=== PATIENT | female | born 1955 | race Caucasian/White ===

== ENCOUNTER 2025-04-08 17:04 | Emergency (ER) | payer OTHER, MEDICARE ==
[~2025-04-08] VITALS: Ht 147.3 cm; Wt 47.6 kg
[2025-04-08 17:39] VITALS: BP 120/79
[2025-04-08] MEDS ORDERED: PENICILLIN G BENZATHINE 2.4 MMU/4 ML DISP.SYRIN IM ONE (19:27)
[2025-04-08] MEDS: PENICILLIN G BENZATHINE 2.4 MMU/4 ML DISP.SYRIN IM ONE (19:37)
[2025-04-08 19:41] VITALS: BP 120/75; TEMP 98.5; O2SAT 98
== END 2025-04-08 19:43 | disposition home or self-care (01) ==
LOC: ER 17:15
DX: S01.511A Laceration without foreign body of lip, initial encounter (principal); X58.XXXA Exposure to other specified factors, initial encounter; Y93.89 Activity, other specified; Y92.89 Other specified places as the place of occurrence of the external cause; Y99.8 Other external cause status
CPT/HCPCS: 99283; 96372; J0561; A4606; A4663